=== PATIENT | male | born 1970 | race Caucasian/White ===

== ENCOUNTER 2018-11-08 12:07 | Emergency (ER) | payer OTHER ==
[~2018-11-08] VITALS: Ht 188 cm; Wt 89.4 kg
[2018-11-08] MEDS ORDERED: HYDROMORPHONE 2MG/ML 2 MG/ML ML IM STA (12:25)
[2018-11-08] MEDS ORDERED: SILVER SULFADIAZINE 50GM CREAM TOP STA (12:30)
[2018-11-08] MEDS ORDERED: ONDANSETRON HCL 4 MG ORAL DISINTEGRATING TAB PO ONE (12:30)
[2018-11-08] MEDS ORDERED: SILVER SULFADIAZINE 50GM CREAM TOP ONE (13:00)
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
[2018-11-08 14:01] VITALS: BP 113/79
[2018-11-15] MEDS ORDERED: NORCO 7.5-3251 EACH PO (13:28)
[2018-11-15] MEDS ORDERED: SILVER SULFADIAZINE TOP (13:28)
== END 2018-11-08 14:00 | disposition home or self-care (01) ==
LOC: ER 12:07
DX: T25.322A Burn of third degree of left foot, initial encounter (principal); T24.112A Burn of first degree of left thigh, initial encounter; T65.891A Toxic effect of other specified substances, accidental (unintentional), initial encounter; Y99.0 Civilian activity done for income or pay; F17.210 Nicotine dependence, cigarettes, uncomplicated
CPT/HCPCS: 16025; 99283; J1170; Q0162

== ENCOUNTER → 2018-11-16 | Day surgery (SDC) | payer OTHER ==
--- NOTE | 2018-11-15 15:12 | Diagnostic Imaging Report ---
EXAMINATION: CHEST 2 VIEWS INDICATION: Preop. Surgery ^PRE OP ^[id number] ^1408 ^ANESTH PROT COMPARISON: None FINDINGS: TUBES and LINES: None. LUNGS: Lungs are well inflated. Lungs are clear. There is no evidence of pneumonia or pulmonary edema. PLEURA: No pleural effusion or pneumothorax. HEART AND MEDIASTINUM: The cardiomediastinal silhouette is unremarkable. BONES AND SOFT TISSUES: No acute osseous lesion. Soft tissues are unremarkable. UPPER ABDOMEN: No free air under the diaphragm. IMPRESSION: No acute thoracic abnormality. Signed by: Dr. Jorge Luis Ricks M.D. on 11/15/2018 3:08 PM
[~2018-11-16] MED LIST: ACETAMINOPHEN 1000 MG/100 ML 100 ML IV ONE; BACITRACIN 50,000 UNIT VIAL ONE; CEFAZOLIN SOD 1 GM/NS 50ML 50 ML IV ONE; DEXAMETHASONE SOD PHOS INJ 4 MG/ML VIAL ONE; FENTANYL CITRATE/PF 100MCG/2 ML INJ ONE; HYDROMORPHONE 2MG/ML 2 MG/ML ML ONE; KETOROLAC TROMETHAMINE 30 MG/ML VIAL ONE; LIDOCAINE 1% W/EPINEPHRINE 20 ML VIAL ONE; LIDOCAINE HCL 2% LOCAL INJ 5 ML SDV VIAL INJ ONE; MIDAZOLAM HCL 2 MG/2 ML VIAL ONE; MINERAL OIL STERILE 10ML VIAL ONE; MUPIROCIN 2% OINT 22 GM TUBE ONE; NORCO 7.5-3251 EACH PO; ONDANSETRON HCL INJ 2MG/ML 2ML 2 MG/ML VIAL ONE; PROPOFOL IV EMULSION 10 MG/ML 20 ML VIAL ONE; SILVER SULFADIAZINE TOP
--- OUTSIDE RECORDS SUMMARY | 2018-11-16 05:59 | XMS REPORT ---
Author Author [facility] Address Unknown Phone Unavailable Care Team Providers Care Guest Service Supervisor Name Role Phone KESHA ZAMORA Unavailable Unavailable Problems This patient has no known problems. Allergies, Adverse Reactions, Alerts This patient has no known allergies or adverse reactions. Medications This patient has no known medications. Results Test Description Test Time Test Comments Text Results Atomic Results Result Comments CHEST 2 VIEWS 2018-11-15 15:08:00 [place] [address] Patient Name: ODIN KRAUS MR #: [id number] : 1970 Age/Sex: 48/M Req #: [id number] [facility] Physician: Ordered by: KESHA ZAMORA MD Report #: [id number] Location: OR Room/Bed: Procedure: [id number] DX/CHEST 2 VIEWS Exam Date: 11/15/18 Exam Time: 1408 REPORT STATUS: Signed EXAMINATION: CHEST 2 VIEWS INDICATION: Preop. Surgery PRE OP [id number] 1408 ANESTH PROT COMPARISON: None FINDINGS: TUBES and LINES: None. LUNGS: Lungs are well inflated. Lungs are clear. There is no evidence of pneumonia or pulmonary edema. PLEURA: No pleural effusion or pneumothorax. HEART AND MEDIASTINUM: The cardiomediastinal silhouette is unremarkable. BONES AND SOFT TISSUES: No acute osseous lesion. Soft tissues are unremarkable. UPPER ABDOMEN: No free air under the diaphragm. IMPRESSION: No acute thoracic abnormality. Signed by: Dr. Jorge Luis Ricks M.D. on 11/15/2018 3:08 PM Dictated By: JORGE LUIS RICKS MD, MD 1508 Transcribed By: TERRI on 11/15/18 1506 COPY TO: KESHA ZAMORA MD
[2018-11-16 10:50] VITALS: BP 115/80
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
== END | disposition home or self-care (01) ==
LOC: OR 05:58
PROVIDERS: ATTEND Plastic Surgery
DX: T25.322A Burn of third degree of left foot, initial encounter (principal); F17.210 Nicotine dependence, cigarettes, uncomplicated; Z01.810 Encounter for preprocedural cardiovascular examination; Z01.811 Encounter for preprocedural respiratory examination
CPT/HCPCS: 15004; 15120; 71046; 93005; 97606; J0131; J0690; J1100; J1170; J1885; J2001; J2250; J2405; J2704; J3010

== ENCOUNTER → 2018-11-20 | Outpatient (CLI) | payer OTHER ==
[~2018-11-20] MED LIST changes: -ACETAMINOPHEN 1000 MG/100 ML 100 ML IV ONE; -BACITRACIN 50,000 UNIT VIAL ONE; -CEFAZOLIN SOD 1 GM/NS 50ML 50 ML IV ONE; -DEXAMETHASONE SOD PHOS INJ 4 MG/ML VIAL ONE; -FENTANYL CITRATE/PF 100MCG/2 ML INJ ONE; -HYDROMORPHONE 2MG/ML 2 MG/ML ML ONE; -KETOROLAC TROMETHAMINE 30 MG/ML VIAL ONE; -LIDOCAINE 1% W/EPINEPHRINE 20 ML VIAL ONE; -LIDOCAINE HCL 2% LOCAL INJ 5 ML SDV VIAL INJ ONE; -MIDAZOLAM HCL 2 MG/2 ML VIAL ONE; -MINERAL OIL STERILE 10ML VIAL ONE; -MUPIROCIN 2% OINT 22 GM TUBE ONE; -ONDANSETRON HCL INJ 2MG/ML 2ML 2 MG/ML VIAL ONE; -PROPOFOL IV EMULSION 10 MG/ML 20 ML VIAL ONE
== END ==
LOC: WCC 11:32
PROVIDERS: ATTEND Plastic Surgery
DX: T81.89XA Other complications of procedures, not elsewhere classified, initial encounter (principal); T54.91XA Toxic effect of unspecified corrosive substance, accidental (unintentional), initial encounter

== ENCOUNTER 2018-11-27 08:00 | Outpatient (RCR) | payer OTHER | END 2018-11-29 | LOC: WCC 08:00 | PROVIDERS: ATTEND Plastic Surgery | DX: T81.89XA Other complications of procedures, not elsewhere classified, initial encounter (principal); T54.91XA Toxic effect of unspecified corrosive substance, accidental (unintentional), initial encounter ==

== ENCOUNTER 2018-12-25 12:47 | Outpatient (RCR) | payer OTHER ==
[~2018-12-25 12:47] MED LIST changes: +MINERAL OIL/PETROLAT/GLYCERI 6OZ BTL ONE; +MUPIROCIN 2% OINT 22 GM TUBE ONE
== END 2018-12-30 ==
LOC: WCC 12:47
PROVIDERS: ATTEND Plastic Surgery
DX: T81.89XA Other complications of procedures, not elsewhere classified, initial encounter (principal); T54.91XA Toxic effect of unspecified corrosive substance, accidental (unintentional), initial encounter